=== PATIENT | female | born 1955 | race Caucasian/White ===

== ENCOUNTER 2020-10-04 07:16 | Emergency (ER) | payer BC ==
[~2020-10-04] VITALS: Ht 162.6 cm; Wt 130.0 kg
[~2020-10-04 07:16] MED LIST: CEREFOLIN TAB1 TAB PO; LEVOXYL75 MCG PO; MECLIZINE HCL25 MG PO
[2020-10-04 07:22] VITALS: Ht 162.6 cm; Wt 130.0 kg
[2020-10-04] MEDS ORDERED: VITAMIN D 22000 UNIT PO (07:28)
[2020-10-04] MEDS ORDERED: PROTONIX40 MG PO (08:04)
[2020-10-04] MEDS ORDERED: CLARITHROMYCIN500 M1 PO (08:04)
[2020-10-04] MEDS ORDERED: AMOXICILLIN875 MG PO (08:04)
[2020-10-04 08:35] VITALS: BP 141/80
== END 2020-10-04 08:35 | disposition home or self-care (01) ==
LOC: D.ER 07:16
DX: K29.70 Gastritis, unspecified, without bleeding (principal); A04.8 Other specified bacterial intestinal infections; R10.13 Epigastric pain